=== PATIENT | female | born 1950 | race Caucasian/White ===

== ENCOUNTER → 2019-02-26 | Outpatient (CLI) | payer MEDICARE ==
[~2019-02-26] MED LIST: ADVAIR 250-501 EACH INH; ATARAX PO; ATORVASTATIN CA10 MG PO; CEFTIN500 MG PO; COZAAR100 MG PO; CYMBALTA60 MG PO; FIORINAL 50-321 EACH PO; HYDROCHLOROTHIA25 MG PO; IMITREX50 MG PO; INDERAL LA160 MG PO; IOPAMIDOL 300 MG/ML 15ML VIAL IT ONE; K DUR10 MEQ PO; LAMICTAL100 MG PO; LAMICTAL200 MG PO; LASIX20 MG PO; LEVAQUIN500 MG PO; LIBRAX CAPSULE1 EACH PO; LIDOCAINE HCL 1% LOCAL INJ 20 ML VIAL ONE; MOTRIN800 MG PO; NORCO 5-325 TA1 EACH PO; PREDNISONE10 M1 PO; PROGESTERONE100 MG PO; PROMETHAZI6.25 MG/5 PO; PROVENTIL HFA6.7 GM INH; SEROQUEL XR300 MG PO; SEROQUEL200 MG PO; SINGULAIR10 MG PO; SYNTHROID50 MCG PO; TESSALON PERLE100 MG PO; TRAMADOL HCL100 MG PO; VESICARE5 MG PO; VITAMIN B12 SQ
[2019-02-26 14:15] LABS: BASOPHILS # (AUTO) 0.1 (0.0-0.1); BASOPHILS % 0.8 % (0.0-1.0); EOSINOPHILS # (AUTO) 0.2 (0.0-0.4); EOSINOPHILS % 1.7 % (0.0-6.0); HEMATOCRIT 44.8 % (34.2-44.1); HEMOGLOBIN 14.4 g/dL (12.0-16.0); LYMPHOCYTES # (AUTO) 2.8 (1.0-3.2); LYMPHOCYTES % 26.6 % (18.0-39.1); MEAN CORPUSCULAR HEMOGLOBIN 31.1 pg (28-32); MEAN CORPUSCULAR HGB CONC 32.1 g/dL (31-35); MEAN CORPUSCULAR VOLUME 96.8 fL (81-99); MONOCYTES # (AUTO) 0.7 (0.2-0.8); MONOCYTES % 6.3 % (4.4-11.3); NEUTROPHILS # (AUTO) 6.8 (2.1-6.9); PLATELET COUNT 333 x10e3/uL (140-360); RED BLOOD COUNT 4.63 x10e6/uL (3.6-5.1); RED CELL DISTRIBUTION WIDTH 14.2 % (11.7-14.4)
[2019-02-26 14:23] LABS: INR 0.92; PARTIAL THROMBOPLASTIN TIME 30.8 seconds (23.8-35.5); PROTHROMBIN TIME 12.8 seconds (11.9-14.5)
--- NOTE | 2019-02-26 16:25 | Diagnostic Imaging Report ---
PROCEDURE: Lumbar myelogram Procedural Personnel Attending physician(s): Kamari Rivera MD Fellow physician(s): None Resident physician(s): None Advanced practice provider(s): None Pre-procedure diagnosis: Spinal stenosis Post-procedure diagnosis: Same Indication: Myelogram prior to CT lumbar spine myelogram. Additional clinical history: None Complications: No immediate complications. IMPRESSION: Fluoroscopically guided lumbar spine myelogram PROCEDURE SUMMARY: - Fluoroscopically guided myelogram at L3-4 with 10cc of Isovue 300 delivered to the thecal space. PROCEDURE DETAILS: Pre-procedure Consent: Informed consent for the procedure including risks, benefits and alternatives was obtained and time-out was performed prior to the procedure. Preparation: The site was prepared and draped using maximal sterile barrier technique including cutaneous antisepsis. Anesthesia/sedation Level of anesthesia/sedation: Local 1% lidocaine Myelogram Shook Splicer images were obtained. Under image guidance and via a translaminar approach, a needle was advanced to the thecal space 10cc of Isovue contrast material was injected and images were stored. Target level: L3-4 Radiation Dose Fluoroscopy time (minutes): 0.7 Reference air kerma (mGy): 19.4 Additional Details Additional description of procedure: None Equipment details: None Estimated blood loss (mL): Less than 10 Attestation Signer name: Kamari Rivera MD I attest that I was present for the entire procedure. I reviewed the stored images and agree with the report as written. Signed by: Kamari Rivera MD on 02/26/2019 4:22 PM
--- NOTE | 2019-02-27 02:29 | Diagnostic Imaging Report ---
EXAMINATION: CT Myelogram of the lumbar spine HISTORY: Low back pain. COMPARISON: lumbar myelogram from 02/26/2019. TECHNIQUE: Multidetector helical axial images were obtained from L1 to S1 following myelography . The images were reconstructed using bone and soft tissue algorithms and were viewed in axial, sagittal and coronal planes. For details of the injection procedure, see the report of the myelogram. Dose modulation, iterative reconstruction, and/or weight based adjustment of the mA/kV was utilized to reduce the radiation dose to as low as reasonably achievable. Intrathecal contrast: Please refer to the fluoroscopic myelogram report for detail. FINDINGS: There are 5 lumbar vertebrae. Curvature: Straightening of normal lumbar lordosis may be positional or due to muscle spasm. Mild levocurvature of the lumbar spine centered at L3-L4. Vertebrae: No evidence of neoplasm, infection, or fracture. Paraspinal muscles: Mild fatty atrophy of the posterior paraspinal muscles at level L5 and S1. Soft tissues: Atherosclerotic calcification in abdominal aorta. Conus: Normal in size and terminates at L1-L2. Cauda equina: Unremarkable to the extent visualized. Degenerative changes: T11-T12: Moderate degenerative disc disease with decreased intervertebral disc space, anterior vertebral osteophyte and endplate sclerosis. 1.5 mm central disc protrusion effaces and indents anterior thecal sac without significant canal stenosis. L1-L2: Mild degenerative disc disease with decreased intervertebral disc space, anterior vertebral osteophyte and endplate sclerosis. 2 mm central disc protrusion with superimposed disc bulge without significant canal stenosis. No foraminal stenosis. L2-L3: Limited evaluation as contrast opacification at this level is suboptimal in the axial set of images, despite the limitation. Mild degenerative disc disease. Disc bulge with superimposed 2.7 mm central disc protrusion effaces and indents anterior thecal sac without significant canal stenosis. No foraminal stenosis. L3-L4:Limited evaluation as contrast opacification at this level is suboptimal in the axial set of images, despite the limitation; Moderate degenerative disc disease with decreased intervertebral disc space, anterior vertebral osteophyte, endplate sclerosis and vacuum phenomenon. Disc bulge in combination with thickened ligamentum flavum and facet arthrosis results in moderate canal stenosis. Moderate bilateral foraminal stenosis (right worse than left). L4-L5: Mild degenerative disc disease. Disc bulge asymmetric to the right in combination with 3 mm central disc protrusion, facet arthrosis and thickened ligamentum flavum without significant canal stenosis. Mild right and moderate left foraminal stenosis. L5-S1: Mild to moderate degenerative disc disease with decreased intervertebral disc space, degenerative endplate changes, anterior vertebral osteophyte and vacuum phenomenon.. Disc bulge without significant canal stenosis. Bilateral mild facet arthrosis. Moderate bilateral foraminal stenosis. IMPRESSION: Multilevel lumbar spondylosis, particularly results in moderate canal stenosis at L3-L4. Multilevel foraminal stenosis, particularly moderate bilateral at L3-L4, mild right and moderate left at L4-L5 and moderate bilateral at L5-S1. Multilevel degenerative disc disease, predominantly at level L3-L4. Loss of normal lumbar lordosis and mild levocurvature of the lumbar spine. Signed by: Dr. Lakshmi Feliciano M.D. on 02/27/2019 2:26 AM
== END ==
LOC: DX 13:11
PROVIDERS: ATTEND Family Medicine
DX: M54.5 Low back pain (principal)
CPT/HCPCS: 36415; 62304; 72132; 85025; 85610; 85730; J2001; Q9967

== ENCOUNTER 2020-08-11 17:06 | Emergency (ER) | payer MEDICARE ==
[~2020-08-11] VITALS: Ht 160 cm; Wt 87.1 kg
[~2020-08-11 17:06] MED LIST changes: -IOPAMIDOL 300 MG/ML 15ML VIAL IT ONE; -LIDOCAINE HCL 1% LOCAL INJ 20 ML VIAL ONE
[2020-08-11] MEDS ORDERED: ASPIRIN 81 MG CHEW TAB PO ONE (17:15)
[2020-08-11 17:39] LABS: BASOPHILS # (AUTO) 0.1 (0.0-0.1); BASOPHILS % 0.9 % (0.0-1.0); EOSINOPHILS # (AUTO) 0.3 (0.0-0.4); EOSINOPHILS % 2.4 % (0.0-6.0); HEMATOCRIT 41.5 % (34.2-44.1); LYMPHOCYTES # (AUTO) 2.7 (1.0-3.2); LYMPHOCYTES % 23.3 % (18.0-39.1); MEAN CORPUSCULAR HEMOGLOBIN 30.6 pg (28-32); MEAN CORPUSCULAR HGB CONC 31.3 g/dL (31-35); MEAN CORPUSCULAR VOLUME 97.6 fL (81-99); MONOCYTES # (AUTO) 0.6 (0.2-0.8); MONOCYTES % 4.8 % (4.4-11.3); NEUTROPHILS # (AUTO) 7.9 (2.1-6.9); NEUTROPHILS % 68.1 % (38.7-80.0); PLATELET COUNT 352 x10e3/uL (140-360); RED BLOOD COUNT 4.25 x10e6/uL (3.6-5.1); RED CELL DISTRIBUTION WIDTH 14.9 % (11.7-14.4)
[2020-08-11 17:59] LABS: ALANINE AMINOTRANSFERASE 10 IU/L (0-55); ALBUMIN 3.7 g/dL (3.5-5.0); ALBUMIN/GLOBULIN RATIO 1.2 (0.8-2.0); ALKALINE PHOSPHATASE 69 IU/L (40-150); ANION GAP 13.4 mmol/L (8-16); BLOOD UREA NITROGEN 20 mg/dL (7-26); BUN/CREATININE RATIO 19 (6-25); CALCIUM 9.3 mg/dL (8.4-10.2); CARBON DIOXIDE 34 mmol/L (22-29); CHLORIDE 100 mmol/L (98-107); CREATINE KINASE 43 IU/L (29-168); CREATININE, SERUM 1.07 mg/dL (0.57-1.11); EST GLOMERULAR FILTRATION RATE 51 ML/MIN (60-); GLUCOSE 107 mg/dL (74-118); POTASSIUM 4.4 mmol/L (3.5-5.1); SODIUM 143 mmol/L (136-145)
[2020-08-11] MEDS ORDERED: SODIUM CHLORIDE 0.9% 500ML 500 ML IV STA (18:54)
[2020-08-11] MEDS ORDERED: IOPAMIDOL 370 MG/ML 200 ML INFUS..BTL INJ ONE (19:14)
[2020-08-11] MEDS ORDERED: SODIUM CHLORIDE 0.9% 50ML 50 ML ONE (19:14)
[2020-08-11 21:51] VITALS: BP 138/93
== END 2020-08-11 21:45 | disposition home or self-care (01) ==
LOC: ER 17:12
DX: R07.9 Chest pain, unspecified (principal); R79.1 Abnormal coagulation profile
CPT/HCPCS: 36415; 71045; 71260; 80053; 82550; 82553; 83880; 84484; 85025; 85379; 99284; J7040; Q9967; 93005